=== PATIENT | male | born 1955 ===

== ENCOUNTER 2018-01-20 09:04 | Emergency (ER) | payer OTHER ==
[2018-01-20 09:07] VITALS: BMI 31.3
[2018-01-20 09:14] VITALS: TEMP 98.3
--- NOTE | 2018-01-20 10:51 | C.PDOC ---
History Of Present Illness 62 year old male presents to the ED for evaluation of flu-like symptoms which began 4 days ago and have worsened for the past day. Patient reports a productive cough, subjective fever, chest pain (questionably pleuritic), rhinorrhea, and dyspnea on exertion. Patient denies prior flu shot. Denies smoking, asthma, COPD. Patient has not tried any [id number]-[id number] medication. FLU LIKE SX X 4 DAYS WORSENING X 1 DAY. PROD COUGH, SUBJ FEVER, CP (?PLEURITIC) , RHINORRHEA, PHELPS. NO PRIOR FLU SHOT. DENIES SMOKING, ASTHMA, COPD. NO OTC MEDS TRIED EXAM MILD DIST HEENT LUNGS +ACTIVE WET COUGH HPI: Influenza Time Seen by Provider: 01/20/18 09:18 Chief Complaint: Flu-like Symptoms History Per: Patient Exam Limitations: no limitations Symptoms include: fever, cough Past Medical History Reviewed: Historical Data, Nursing Documentation, Vital Signs Vital Signs: Last Vital Signs Temp 98.3 F 01/20/18 09:13 Pulse 82 01/20/18 09:13 Resp 20 01/20/18 09:13 BP 139/85 01/20/18 09:13 Pulse Ox 100 01/20/18 09:13 - Medical History PMH: HTN (PT RAN OUT OF MEDS [address] SANJIV MCCORD), Hypercholesterolemia Denies: Chronic Kidney Disease Surgical History: Appendectomy, Cholecystectomy - [facility] Procedures CYSTOSCOPY NEC (01/01/15) DX ULTRASOUND NEC (01/01/15) ENDOSC POLYPECTOMY OF LG INTEST (06/24/14) INFLUENZA VACCINATION (10/21/14) LAPAROSCOP LYSIS-PERITONEAL ADHES (10/21/14) LAPAROSCOPIC INCISIONAL HERNIA REPAIR W GRAFT OR PROSTHESIS (10/21/14) PERCUTAN NEEDLE BIOPSY OF PROSTATE (01/01/15) Family History: States: Unknown Family Hx - Social History Hx Tobacco Use: No Hx Alcohol Use: No Hx Substance Use: No - Immunization History Hx Tetanus Toxoid Vaccination: No Hx Influenza Vaccination: No Hx Pneumococcal Vaccination: No Review Of Systems Constitutional: Positive for: Fever ENT: Positive for: Nose Discharge Respiratory: Positive for: Cough, Pleuritic Pain (questionable), Sputum Physical Exam - Physical Exam Appears: Non-toxic, Other (in mild distress ) Skin: Normal Color, Warm, Dry Head: Atraumatic, Normacephalic Eye(s): bilateral: Normal Inspection Ear(s): Bilateral: Normal Nose: Normal, No Discharge Throat: Normal, No Erythema, No Exudate Neck: Supple Chest: Symmetrical, No Deformity, No Tenderness Cardiovascular: Rhythm Regular, No Murmur Respiratory: Normal Breath Sounds, No Rales, No Rhonchi, No Wheezing, Other ( active wet cough noted ) Extremity: Normal ROM, Capillary Refill (less than 2 seconds ) Neurological/Psych: Oriented x3, Normal Speech, Normal Cognition - ECG O2 Sat by Pulse Oximetry: 100 (on RA) Pulse Ox Interpretation: Normal - Radiology X-Ray: Interpreted by Me, Read By Radiologist X-Ray Interpretation: No Acute Disease - Progress ED Course And Treament: CXR ordered and reviewed. Motrin PO, Tamiflu PO, Tessalin PO, and Tylenol PO administered. Disposition Counseled Patient/Family Regarding: Diagnosis, Need For Followup, Rx Given - Disposition Referrals: [facility] [Outside] [facility] [Outside] Disposition: HOME/ ROUTINE Disposition Time: 11:33 Condition: IMPROVED Prescriptions: Azithromycin 250 mg PO DAILY #6 tab Benzonatate [Tessalon Perles] 200 mg PO TID PRN #15 sgl PRN Reason: Cough Ibuprofen [Motrin] 600 mg PO Q6 #30 tab Oseltamivir [Tamiflu] 75 mg PO BID #9 cap Instructions: Flu, Viral Upper Respiratory Infection, Adult (DC) Forms: [employer] (Ethiopian), Work Excuse Print Language: BRITISH - Clinical Impression Clinical Impression: Influenza-like illness, Upper respiratory infection - Scribe Statement The provider has reviewed the documentation as recorded by the Scribe (Luana Saucedo) Provider Attestation: All medical record entries made by the Scribe were at my direction and personally dictated by me. I have reviewed the chart and agree that the record accurately reflects my personal performance of the history, physical exam, medical decision making, and the department course for this patient. I have also personally directed, reviewed, and agree with the discharge instructions and disposition.
--- NOTE | 2018-01-20 11:27 | RAD ---
HISTORY: COUGH COMPARISON: 12/30/2014 TECHNIQUE: Chest PA and lateral FINDINGS: LUNGS: Probable subsegmental atelectasis left lower lobe. No acute infiltrate. PLEURA: No significant pleural effusion identified. No pneumothorax apparent. CARDIOVASCULAR: Normal. OSSEOUS STRUCTURES: No significant abnormalities. VISUALIZED UPPER ABDOMEN: Normal. OTHER FINDINGS: None. IMPRESSION: Probable left lower lobe subsegmental atelectasis. Otherwise unremarkable.
[2018-01-20 11:55] VITALS: BP 128/81; PULSE 65; RESP 18
[2018-01-20 12:51] VITALS: O2SAT 100
== END 2018-01-20 11:56 | disposition home or self-care (01) ==
LOC: C.ER 09:04
DX: J11.1 Influenza due to unidentified influenza virus with other respiratory manifestations (principal); Z87.891 Personal history of nicotine dependence

== ENCOUNTER 2018-11-11 16:33 | Emergency (ER) | payer OTHER ==
[2018-11-11 16:33] VITALS: BMI 31.3
[2018-11-11 16:39] VITALS: O2SAT 100
[2018-11-11] MEDS ORDERED: Sodium Chloride 0.9% 1,000 ML IV ONE (17:15)
[2018-11-11 17:25] LABS: BASO % 0.2 % (0.0-2.0); EOS # 0.2 K/uL (0.0-0.7); EOS % 2.8 % (0.0-4.0); LYMPH # 1.6 K/uL (1.0-4.3); LYMPH % 27.3 % (20.0-40.0); MEAN CELL VOLUME 91.2 fL (80.0-94.0); MEAN PLATELET VOLUME 8.8 fL (7.2-11.7); MONO # 0.5 K/uL (0.0-0.8); NEUT # 3.5 K/uL (1.8-7.0); NEUT % 61.7 % (50.0-75.0); RBC 5.15 Mil/uL (4.40-5.90); RED CELL DISTRIBUTION WIDTH 13.2 % (11.5-14.5); WHITE BLOOD COUNT 5.7 K/uL (4.8-10.8)
[2018-11-11] MEDS ORDERED: Iodixanol 320 MG/ML 100 ML BOTTLE IV ONE (17:27)
--- NOTE | 2018-11-11 17:28 | C.PDOC ---
History Of Present Illness 63 y/o male presents to the ED with complaints of abdominal pain, vomiting, and diarrhea for the past 3 days. States multiple bouts of vomiting, non-bloody and non-bilious, and multiple episodes of non-bloody diarrhea. Pain is described as diffuse, mostly lower abdomen. Denies any fever, chills, chest pain, or SOB. No recent travel. No known sick contacts. History is significant for psoriasis. Time Seen by Provider: 11/11/18 17:06 Chief Complaint (Nursing): Abdominal Pain History Per: Patient History/Exam Limitations: no limitations Onset/Duration Of Symptoms: Days Current Symptoms Are (Timing): Still Present Associated Symptoms: Vomiting, Diarrhea Past Medical History Reviewed: Historical Data, Nursing Documentation, Vital Signs Vital Signs: Last Vital Signs Temp 98.8 F 11/11/18 16:37 Pulse 70 11/11/18 16:37 Resp 20 11/11/18 16:37 BP 162/96 H 11/11/18 16:37 Pulse Ox 100 11/11/18 16:37 - Medical History PMH: HTN (PT RAN OUT OF MEDS [address] SANJIV MCCORD), Hypercholesterolemia Denies: Chronic Kidney Disease Other PMH: Psoriasis Surgical History: Appendectomy, Cholecystectomy - [facility] Procedures CYSTOSCOPY NEC (01/01/15) DX ULTRASOUND NEC (01/01/15) ENDOSC POLYPECTOMY OF LG INTEST (06/24/14) INFLUENZA VACCINATION (10/21/14) LAPAROSCOP LYSIS-PERITONEAL ADHES (10/21/14) LAPAROSCOPIC INCISIONAL HERNIA REPAIR W GRAFT OR PROSTHESIS (10/21/14) PERCUTAN NEEDLE BIOPSY OF PROSTATE (01/01/15) Family History: States: Unknown Family Hx - Social History Hx Tobacco Use: No Hx Alcohol Use: No Hx Substance Use: No - Immunization History Hx Tetanus Toxoid Vaccination: No Hx Influenza Vaccination: No Hx Pneumococcal Vaccination: No Review Of Systems Constitutional: Negative for: Fever, Chills Cardiovascular: Negative for: Chest Pain Respiratory: Negative for: Shortness of Breath Gastrointestinal: Positive for: Vomiting, Abdominal Pain, Diarrhea. Negative for: Hematochezia, Hematemesis Genitourinary: Negative for: Dysuria, Hematuria Neurological: Negative for: Weakness, Dizziness Physical Exam - Physical Exam Appears: Non-toxic, No Acute Distress Skin: Normal Color, Warm, Dry Head: Atraumatic, Normacephalic Eye(s): bilateral: Normal Inspection, PERRL, EOMI Oral Mucosa: Moist Neck: Normal ROM, Supple Chest: Symmetrical Cardiovascular: Rhythm Regular, No Murmur Respiratory: No Rhonchi, No Wheezing, Other (Lungs clear bilaterally) Gastrointestinal/Abdominal: Soft, Tenderness (over the abdomen, especially to right and left lower quadrants), No Distention, No Guarding, No Rebound Back: No CVA Tenderness, No Vertebral Tenderness Extremity: Bilateral: Atraumatic, Normal Color And Temperature, Other (No pitting edema) Pulses: Left Dorsalis Pedis: Normal, Right Dorsalis Pedis: Normal Neurological/Psych: Oriented x3, Normal Speech ED Course And Treatment - Laboratory Results Result Diagrams: 11/11/18 17:22 11/11/18 17:22 O2 Sat by Pulse Oximetry: 100 (RA) Pulse Ox Interpretation: Normal Medical Decision Making Medical Decision Making: Impression: Abdominal pain with acute gastroenteritis, r/o appendicitis, r/o diverticulitis Plan: - Labs - IV fluids - 30 mg IV Toradol - 4 mg IV Zofran - 20 mg IV Pepcid - CT Abdomen/Pelvis with PO&IV contrast CT Abdomen/Pelvis resulted: FINDINGS: LUNG BASES: The lung bases appear clear. No pleural effusions are seen. LIVER: Unremarkable. GALLBLADDER AND BILE DUCTS: Gallbladder has been surgically removed. PANCREAS: Unremarkable. SPLEEN: Unremarkable. ADRENAL GLANDS: Unremarkable. KIDNEYS, URETERS, AND BLADDER: Right renal cyst measuring 3.6 x 3.4 cm. There is no hydronephrosis or hydroureter. No urinary calculi are seen. Prostate gland markedly enlarged and heterogeneous in attenuation. STOMACH AND BOWEL: Postsurgical changes are seen to involve the region of the ascending colon. Extensive diverticular changes involving the sigmoid and distal descending colon without significant pericolonic stranding or abscess. APPENDIX: No evidence of acute appendicitis on CT examination. PERITONEUM: No free fluid. No free air. LYMPH NODES: No lymphadenopathy is evident. VASCULATURE: No evidence of abdominal aortic aneurysm. BONES: No aggressive appearing osseous lesion. No acute osseous pathology evident. IMPRESSION: Status post cholecystectomy and postsurgical changes right side of the abdomen. Right renal cyst. Extensive diverticular change involving the sigmoid distal descending colon. A right renal cyst. Marked enlargement of the prostate gland. Clinical correlation advised. Disposition - Disposition Ref[place]: [facility] [place] [facility] [Outside] [facility] [place] [Outside] Disposition: HOME/ ROUTINE Disposition Time: 20:07 Condition: IMPROVED Additional Instructions: Please keep bland diet and take your medications as directed. Prescriptions: Famotidine [Pepcid] 40 mg PO DAILY #30 tablet Ibuprofen [Motrin] 600 mg PO Q6 #20 tab Instructions: Viral Gastroenteritis Forms: [employer] (Indonesian), Work Excuse, [employer] (Welsh) - Clinical Impression Clinical Impression: Abdominal pain, Gastroenteritis - Scribe Statement The provider has reviewed the documentation as recorded by the Orlando Kincaid Provider Attestation: All medical record entries made by the Orlando were at my direction and personally dictated by me. I have reviewed the chart and agree that the record accurately reflects my personal performance of the history, physical exam, medical decision making, and the department course for this patient. I have also personally directed, reviewed, and agree with the discharge instructions and disposition.
[2018-11-11] MEDS ORDERED: Iohexol 240 (50 ml) PO ONE (17:29)
[2018-11-11] MEDS ORDERED: Iohexol 240 (50 ml) ONE (17:34)
[2018-11-11] MEDS ORDERED: Sodium Chloride 0.9% 1,000 ML ONE (17:35)
[2018-11-11 17:42] LABS: ALB/GLOB RATIO 1.2 (1.0-2.1); ALBUMIN 4.3 g/dL (3.5-5.0); ALT/SGPT 25 U/L (21-72); AST/SGOT 20 U/L (17-59); BLOOD UREA NITROGEN 10 mg/dL (9-20); CALCIUM 8.8 mg/dl (8.6-10.4); GFR NON-AFRICAN AMERICAN > 60; LIPASE 49 U/L (23-300)
[2018-11-11 18:39] LABS: URINE BACTERIA RARE (<OCC); URINE BILIRUBIN NEGATIVE (NEGATIVE); URINE BLOOD NEGATIVE (NEGATIVE); URINE CLARITY Clear (Clear); URINE COLOR Yellow (YELLOW); URINE GLUCOSE (UA) NORMAL (Normal); URINE LEUKOCYTE ESTERASE NEG Leu/uL (Negative); URINE PROTEIN NEGATIVE (NEGATIVE); URINE UROBILINOGEN NORMAL mg/dL (0.2-1.0)
[2018-11-11 20:08] VITALS: BP 143/78; PULSE 68; RESP 18; TEMP 98.7
--- NOTE | 2018-11-12 09:30 | CT ---
Date of service: 11/11/2018 PROCEDURE: CT Abdomen and Pelvis with contrast HISTORY: abd pain COMPARISON: 01/03/2018 TECHNIQUE: Contrast dose: 100 mL Visipaque 320 Radiation dose: Total exam DLP = 1301.59 mGy-cm. This CT exam was performed using one or more of the following dose reduction techniques: Automated exposure control, adjustment of the mA and/or kV according to patient size, and/or use of iterative reconstruction technique. FINDINGS: LOWER THORAX: Unremarkable. LIVER: Unremarkable. No gross lesion or ductal dilatation. GALLBLADDER AND BILE DUCTS: Status post cholecystectomy PANCREAS: Unremarkable. No gross lesion or ductal dilatation. SPLEEN: Unremarkable. ADRENALS: Unremarkable. No mass. KIDNEYS AND URETERS: Right lower pole cortical cyst, 4.1 cm, unchanged from prior. This measures 9 Hounsfield units in attenuation. No other renal mass. No calculus or hydronephrosis. VASCULATURE: Unremarkable. No aortic aneurysm. No aortic atherosclerotic calcification or mural plaque present. BOWEL: Right hemicolectomy. Ileocolic anastomosis. No bowel obstruction. Pancolonic diverticulosis. No evidence of diverticulitis. APPENDIX: Right hemicolectomy PERITONEUM: Unremarkable. No free fluid. No free air. LYMPH NODES: Unremarkable. No enlarged lymph nodes. BLADDER: Unremarkable. REPRODUCTIVE: Mild prostate enlargement BONES: No acute fracture. OTHER FINDINGS: None. IMPRESSION: Status post right hemicolectomy. Pancolonic diverticulosis without evidence of diverticulitis. No other significant abnormality. The preliminary findings for this examination were reported by [facility] at 7:17 p.m. on 11/11/2018. There is concurrence of this report with the preliminary findings.
== END 2018-11-11 20:07 | disposition home or self-care (01) ==
LOC: C.ER 16:33
DX: K52.9 Noninfective gastroenteritis and colitis, unspecified (principal); R10.9 Unspecified abdominal pain; E78.00 Pure hypercholesterolemia, unspecified; I10 Essential (primary) hypertension
CPT/HCPCS: 74177; 80053; 81001; 83690; 85025; 96374; 96375; 99284; J1885; J2405; J7030; Q9966; Q9967